=== PATIENT | female | born 1980 | race Asian ===

== ENCOUNTER 2016-07-05 06:14 | Emergency (ER) | payer OTHER ==
[2016-07-05 06:47] LABS: Manual Entry Verification CAR0052; UR Preg Internal Control QC Line Present; UR Preg Kit Lot# 6030156
[2016-07-05 06:53] LABS: Urine Bacteria Absent (Absent); Urine Bilirubin Negative (Negative); Urine Glucose Negative (Negative); Urine Nitrite Negative (Negative)
[2016-07-05] MEDS ORDERED: Ciprofloxacin TAB* 500 MG PO ONE (07:25)
[2016-07-05] MEDS ORDERED: Phenazopyridine 200 mg (NF) 200 MG TAB PO ONE (07:26)
[2016-07-05] MEDS ORDERED: Phenazopyridine TAB* 100 MG PO ONE (07:42)
--- NOTE | 2016-07-05 07:59 | ED ---
Del Reynolds Salem, scribed for Andreina Laughlin MD on 07/05/16 at 0730 . GI/ HPI - HPI Summary HPI Summary: Pt presents to the hospital through amb triage. Pt speaks Greek as second language - is fluent and interpreting. Patient is 35 y/o female who presents to the ED with dysuria since 0400 today. Patient reports hematuria, suprapubic pain, and urgency starting at 4am today. Pt denies vaginal discharge , back pain, or vaginal itching. Pt denies nausea, vomiting. No fever, chills, rash. no cp, sob, abd pain. Pt has previously had UTI - last August 2015. She reports no other sx. Her LMP was on 06/19/16. She states she is on no medication and she has no allergies. . SHx significant for ovarian cyst removal and PMHx significant for UTI's (most recent in August 2015). - History of Current Complaint Chief Complaint: EDUrogenitalProblems Stated Complaint: POSS UTI Hx Obtained From: Patient, Family/Bag Machine Operator Helper Onset/Duration: Started Hours Ago, Still Present Timing: Constant Severity: Moderate Current Severity: Moderate Pain Intensity: 8 Location of Pain: Suprapubic Pain Characteristics: Burning, Pressure Associated Signs and Symptoms: Positive: Hematuria, Dysuria, Other: - Urgency. No pruritus.. Negative: Back Pain Aggravating Factor(s): Nothing Alleviating Factor(s): Nothing - Allergy/Home Medications Allergies/Adverse Reactions: Allergies Allergy/AdvReac Type Severity Reaction Status Date / Time No Known Allergies Allergy Verified 07/05/16 07:43 PMH/Surg Hx/FS Hx/Imm Hx Previously Healthy: Yes History: Reports: Other Problems/Disorders - UTIs - Surgical History Surgery Procedure, Year, and Place: Ovarian cyst. - Immunization History Date of Tetanus Vaccine: unk Date of Influenza Vaccine: none Infectious Disease History: No Infectious Disease History: Denies: Traveled Outside the [place] in Last 30 Days - Family History Known Family History: Positive: Other - No CA. Negative: Diabetes - Social History Lives: With Family Alcohol Use: None Hx Substance Use: No Substance Use Type: Reports: None Hx Tobacco Use: No Smoking Status (MU): Never Smoked Tobacco Review of Systems Negative: Fever Eyes: Negative ENT: Negative Cardiovascular: Negative Respiratory: Negative Gastrointestinal: Negative Positive: burning, dysuria, hematuria, urgency. Negative: discharge Musculoskeletal: Negative Positive: Other - No back pain or pruritus. Skin: Negative Neurological: Negative Psychological: Normal All Other Systems Reviewed And Are Negative: Yes Physical Exam Triage Information Reviewed: Yes Vital Signs On Initial Exam: Initial Vitals Temp Pulse Resp BP Pulse Ox 97.5 F 82 18 120/80 99 07/05/16 06:15 07/05/16 06:15 07/05/16 06:15 07/05/16 06:15 07/05/16 06:15 Vital Signs Reviewed: Yes Appearance: Positive: Well-Appearing, No Pain Distress - Pt had to leave room to urinate - urgency Skin: Positive: Warm, Skin Color Reflects Adequate Perfusion, Dry Head/Face: Positive: Normal Head/Face Inspection Eyes: Positive: Normal Neck: Positive: Supple, Nontender, No Lymphadenopathy Respiratory/Lung Sounds: Positive: Clear to Auscultation, Breath Sounds Present Cardiovascular: Positive: Normal, RRR Abdomen Description: Positive: Nontender, No Organomegaly, Soft Bowel Sounds: Positive: Present Musculoskeletal: Positive: Normal, Strength/ROM Intact Neurological: Positive: Normal, Sensory/Motor Intact, Alert, Oriented to Person Place, Time Psychiatric: Positive: Normal AVPU Assessment: Alert - Jerrell Coma Scale Best Eye Response: 4 - Spontaneous Best Motor Response: 6 - Obeys Commands Best Verbal Response: 5 - Oriented Coma Scale Total: 15 Diagnostics - Vital Signs Vital Signs Temp Pulse Resp BP Pulse Ox 07/05/16 06:15 97.5 F 82 18 120/80 99 - Laboratory Lab Results: Lab Results 07/05/16 Range/Units 06:25 Urine Color Colorless Urine Appearance Clear Urine pH 8.0 (5-9) Ur Specific [place] 1.001 L (1.010-1.030) Urine Protein Negative (Negative) Urine Ketones Negative (Negative) Urine Blood 3+ H (Negative) Urine Nitrate Negative (Negative) Urine Bilirubin Negative (Negative) Urine Urobilinogen Negative (Negative) Ur Leukocyte Esterase 2+ H (Negative) Urine WBC (Auto) Trace(0-5/hpf) (Absent) Urine RBC (Auto) Absent (Absent) Ur Squamous Epith Cells Present H (Absent) Urine Bacteria Absent (Absent) Urine Glucose Negative (Negative) Urine Ascorbic Acid Not Reportable Urine Test Negative (Negative) Lab Statement: Any lab studies that have been ordered have been reviewed, and results considered in the medical decision making process. GIGU Course/Dx - Course Assessment/Plan: Pt present with urgency, frequency and hematuria since this morning. Pt without other complaints - no fever, chills, back pain. Will check urine, hcg, . Will give cipro/pyridium for UTI if not . culture. PCP f/u - Diagnoses Provider Diagnoses: UTI (urinary tract infection) Discharge - Discharge Plan Condition: Stable Disposition: HOME Prescriptions: Ciprofloxacin HCl [Cipro 500 MG TAB] 500 mg PO BID #10 tab Phenazopyridine TAB* [Pyridium 100 mg TAB*] 100 mg PO TID #6 tab Patient Education Materials: Urinary Tract Infection in Women (ED) Referrals: Mar Quevedo MD [Primary Care Provider] - Additional Instructions: - stay well hydrated. Drink plenty of non-alcoholic, non-caffinated beverages - Take antibiotics as prescribed until gone - Okay to take pyridium - medication as prescribed - for bladder spasm. This medication will make your urine bright orange - this is normal - call your doctor to schedule a follow-up appointment next week. Call your doctor or return with questions or concerns The documentation as recorded by the Del pollock Salem accurately reflects the service I personally performed and the decisions made by , Andreina Laughlin MD.
[2016-07-05 08:15] VITALS: BP 95/59
--- NOTE | 2016-07-07 06:38 | ED ---
Progress - Progress Note Progress Note: Pt's urine cx reveals e. coli > 100,00 - she was dx'd w/ UTI at d/c and rx cipro. No change in meds at this time. Course/Dx - Diagnoses Provider Diagnoses: UTI (urinary tract infection)
== END 2016-07-05 08:13 | disposition home or self-care (01) ==
LOC: ED 06:14
DX: N39.0 Urinary tract infection, site not specified (principal); R31.9 Hematuria, unspecified; R30.0 Dysuria
CPT/HCPCS: 81003; 81015; 81025; 87077; 87086; 87186; 99282; A9270-GY

== ENCOUNTER 2017-01-27 07:08 | Emergency (ER) | payer OTHER ==
[2017-01-27 07:18] VITALS: BP 95/76
[2017-01-27] MEDS ORDERED: Albuterol 2.5 MG/3 ML NEB.SOL* (0.083%) INH ONE (07:44)
[2017-01-27] MEDS ORDERED: Ketorolac INJ* 60 MG/2 ML VIAL IM ONE (08:08)
--- NOTE | 2017-01-27 08:24 | UC ---
Juancarlos Reynolds Angela, scribed for Rebecca Grier DO on 01/27/17 at 0730 . Respiratory Complaint HPI - HPI Summary HPI Summary: This pt is a 36 y/o female accompanied by her presenting to [facility] c/o cold symptoms x4 days. Pt reports the first day she had a sore throat and then after some English medicine her sore throat alleviated. She states that she now has productive cough with white sputum (non-bloody) and sneezing. Pt notes that her sputum at first was green, now it's white. Pt takes Nyquil at night to help her sleep and sleeps for approximately 5 hours. She is awaken earlier in the morning due to her cough. Pt additionally c/o runny nose. Pt denies fever, chills, ear ache, nausea, vomiting, abd pain, chest pain, SOB. She denies any PMHx. Pt speaks Mandarin and her is translating for her. We attempted to use the therapist rrt but it was not working. - History of Current Complaint Chief Complaint: UCRespiratory Stated Complaint: COUGH RESP ISSUE Time Seen by Provider: 01/27/17 07:21 Hx Obtained From: Patient, Family/Sifting Operator - (who is translating for the pt) Hx Last Menstrual Period: 01/11/17 ?: No Onset/Duration: Lasting Days, Still Present Severity Initially: Moderate Severity Currently: Moderate Pain Intensity: 2 Pain Scale Used: 0-10 Numeric Character: Cough: Productive, Sputum Description: - white now Aggravating Factors: Recumbent Position Alleviating Factors: Upright Position Associated Signs And Symptoms: Positive: URI - runny nose, productive cough, sore throat (now resolved), Nasal Congestion - mild. Negative: Dyspnea, Fever, Chills, Pleuritic Chest Pain, Hemoptysis, Dizziness, Hoarseness, Sinus Discomfort - Allergies/Home Medications Allergies/Adverse Reactions: Allergies Allergy/AdvReac Type Severity Reaction Status Date / Time No Known Allergies Allergy Verified 01/27/17 07:18 PMH/Surg Hx/FS Hx/Imm Hx Previously Healthy: Yes Other Endocrine History: DENIES: diabetes Other Cardiovascular History: DENIES: HTN - Surgical History Surgical History: Yes Surgery Procedure, Year, and Place: Ovarian cyst. - Family History Known Family History: Positive: Other - No CA. Negative: Cardiac Disease, Hypertension, Diabetes - Social History Lives: With Family Alcohol Use: None Substance Use Type: None Smoking Status (MU): Never Smoked Tobacco Review of Systems Constitutional: Negative Skin: Negative Eyes: Negative ENT: Sore Throat - now resolved, Other - POS: runny nose. NEG: ear ache Respiratory: Cough, Other - NEG: SOB Cardiovascular: Negative Gastrointestinal: Negative Genitourinary: Negative Motor: Negative Neurovascular: Negative Musculoskeletal: Negative Neurological: Negative Psychological: Negative All Other Systems Reviewed And Are Negative: Yes Physical Exam Triage Information Reviewed: Yes Appearance: Well-Appearing, No Pain Distress, Well-Nourished Vital Signs: Initial Vital Signs Temp 98.6 F 01/27/17 07:12 Pulse 96 01/27/17 07:12 Resp 16 01/27/17 07:12 BP 95/76 01/27/17 07:12 Pulse Ox 96 01/27/17 07:12 Vital Signs Reviewed: Yes Eyes: Positive: Conjunctiva Clear. Negative: Discharge ENT: Positive: Hearing grossly normal, Pharyngeal erythema, Nasal drainage. Negative: Tonsillar swelling, Tonsillar exudate, Trismus, Muffled/hoarse voice Dental Exam: Normal Neck exam: Normal Neck: Positive: Supple, Nontender, No Lymphadenopathy Respiratory: Positive: No respiratory distress, No accessory muscle use, Wheezing - rare wheezes, Expiration - prolonged at bl base Cardiovascular: Positive: RRR, No Murmur Musculoskeletal Exam: Normal Neurological: Positive: Alert, Muscle Tone Normal Psychological Exam: Normal Psychological: Positive: Age Appropriate Behavior Skin Exam: Normal, Other - warm, dry, normal color UC Diagnostic Evaluation - Laboratory O2 Sat by Pulse Oximetry: 96 Respiratory Course/Dx - Course Course Of Treatment: Medications reviewed this visit. - Differential Dx/Diagnosis Differential Diagnosis/HQI/PQRI: Asthma, Bronchitis, Lower Resp Infection, Sinusitis Provider Diagnoses: uri, bronchospasm Discharge - Discharge Plan Condition: Stable Disposition: HOME Prescriptions: Albuterol HFA INHALER* [Ventolin HFA Inhaler*] 2 puff INH Q4H PRN #1 mdi PRN Reason: Sob/Wheezing Benzonatate CAP* [Tessalon 100 MG CAP*] 100 mg PO TID #30 cap guaiFENesin ER TAB [Mucinex*] 600 mg PO BID PRN #1 box PRN Reason: Cough guaiFENesin/CODIEN 100MG-10MG* [Robitussin AC 100Mg-10Mg*] 5 - 10 ml PO Q4H PRN #100 udc MDD 10ml PRN Reason: Cough Patient Education Materials: Bronchospasm (ED), Upper Respiratory Infection (ED ) Print Language: MANDARIN Referrals: Mar Quevedo MD [Primary Care Provider] - 1 Week () Additional Instructions: INHALED BRONCHODILATORS: You have received a prescription for an inhaled bronchodilator -- a medication which stimulates the airways in the lung to dilate. This improves the flow of air in asthma, bronchitis, and emphysema. These medicines have some similarity to adrenaline, and can cause similar side effects: shakiness, racing heart, and a sense of nervousness. These side effects decrease with time. Contact your doctor if these side effects are severe. Do not over-use the medicine. Too-frequent use of the inhaler may make it ineffective. Call your doctor if the inhaler is not controlling your symptoms at the prescribed doses. COUGH-SUPPRESSANT & EXPECTORANT MEDICATION: You are to use a cough medication as needed for relief of symptoms. This medicine is a combination of an expectorant (to make the mucous thinner and more easily "coughed up") and a cough suppressant (to reduce the frequency of coughing). The cough-suppressant medicine is related to narcotics. You may experience mild nausea and sleepiness. Some patients who are very sensitive to narcotics may have stomach pain from this medicine. Taking the medicine with food reduces these side effects. Do not drive or work with machinery until you know how this medicine affects you. The expectorant should have no side effects. Iodine-containing expectorants (such as organidin) should not be taken by persons with active thyroid disease unless approved by your doctor. Call the doctor if you develop shortness of breath, hives, rash, itching, lightheadedness, or severe nausea and vomiting. EXPECTORANT MEDICATION: WE SENT IN A SCRIPT FOR MUCINEX SO THAT IT IS EASIER FOR YOU TO PICK THE RIGHT MED AT THE PHARMACY. HOWEVER, YOU CAN ALSO GO TO THE [employer] AND BUY PLAIN GUAIFENESIN WITHOU BINDERS OR FILLERS. An expectorant medicine has been prescribed. This type of drug makes mucous thinner, helping the sinuses, nose, and bronchial tubes to remain free of pus and mucous. Expectorants make a cough less severe and more comfortable, and help infected sinuses drain. In general, antihistamines defeat the purpose of the expectorant by making mucous thicker. They should be avoided unless specifically recommended by your physician. TESSALON PERLES: You have received a prescription for Tessalon Perles (benzonatate). This is a non-narcotic medicine for relief of cough. It usually works in about 15- 20 minutes and lasts around four hours. Tessalon Perles should be swallowed. They should not be chewed or dissolved in the mouth (this can produce temporary numbing of the mouth and choking can occur). If you develop any adverse effects such as wheezing, shortness of breath, hives, rash, itching, or lightheadedness, please return at once. If your symptoms are not better within 1 week, please see Dr. Quevedo. The documentation as recorded by the Juancarlos pollock Angela accurately reflects the service I personally performed and the decisions made by me, Rebecca Grier DO.
== END 2017-01-27 08:19 | disposition home or self-care (01) ==
LOC: UCEAST 07:08
DX: J06.9 Acute upper respiratory infection, unspecified (principal); J98.01 Acute bronchospasm
CPT/HCPCS: 99212; G0463